=== PATIENT | male | born 1985 | race African-American/Black ===

== ENCOUNTER → 2018-12-01 | Outpatient (CLI) | payer OTHER ==
[~2018-12-01] MED LIST: ACET-66 PO; IBUP-2077 PO
[2018-12-01 14:09] LABS: BASOPHILS % (AUTO) 1.5 % (0.0-5.0); EOSINOPHILS % (AUTO) 7.3 % (0.0-8.0); HEMATOCRIT 40.1 % (42-54); LYMPHOCYTES % (AUTO) 27.1 % (21.0-51.0); MEAN CORPUSCULAR HEMOGLOBIN 28.7 pg (27.0-33.0); MEAN CORPUSCULAR HGB CONC 33.8 g/dL (32.0-36.0); MEAN CORPUSCULAR VOLUME 84.8 fL (79-99); MONOCYTES % (AUTO) 7.3 % (3.0-13.0); NEUTROPHILS % (AUTO) 56.8 % (40.0-77.0); PLATELET COUNT (AUTO) 351 K/uL (130-400); RED BLOOD CELL COUNT(AUTO) 4.73 MIL/uL (4.50-6.20); RED CELL DISTRIBUTION WIDTH 12.9 % (11.0-15.5); WHITE BLOOD COUNT (AUTO) 9.1 K/uL (4.8-10.8)
[2018-12-01 14:30] LABS: GLUCOSE,BODY FLUID 96 mg/dL (1-40)
[2018-12-01 15:13] LABS: ERYTHROCYTE SEDIMENTATION RATE 66 MM/HR (0-15)
[2018-12-01 16:35] LABS: BF LYMPHOCYTE 8 %; BF MONOCYTE 3 %
[2018-12-01 16:36] LABS: APPEARANCE BODY FLUID CLOUDY (CLEAR); COLOR,BODY FLUID YELLOW (LT YELLOW); SPECIMENTYPE,BODY FLUID SYNOVIAL; TOTAL VOLUME,BODY FLUID 30 mL
[2018-12-01 16:37] LABS: BODY FLUID WBC 6310 /cu. mm.
[2018-12-01 16:38] LABS: BODY FLUID RBC 31 /cu. mm.
[2018-12-02 09:03] LABS: CRYSTALS, SYNOVIAL FLUID SEE SEPARATE REPORT
== END | disposition home or self-care (01) ==
LOC: LAB 13:20
PROVIDERS: ATTEND Orthopaedic Surgery
DX: M10.9 Gout, unspecified (principal)
CPT/HCPCS: 36415; 82945; 85025; 85651; 86140; 87071; 87205; 89051; 89060